=== PATIENT | female | born 1960 | race African-American/Black ===

== ENCOUNTER 2017-06-16 12:09 | Emergency (ER) | payer OTHER ==
[~2017-06-16] VITALS: Ht 154.9 cm; Wt 83.9 kg
[2017-06-16] MEDS ORDERED: ONDANSETRON HCL INJ 2 MG/ML VIAL IV STA (12:26)
[2017-06-16] MEDS ORDERED: SODIUM CHLORIDE 0.9% 1000ML 1,000 ML IV STA (12:26)
[2017-06-16] MEDS ORDERED: MORPHINE SULFATE 4 MG/ML SYR IV STA (12:26)
[2017-06-16] MEDS ORDERED: DIATRIZOATE MEGL/DIATRIZOA SOD 30 ML BTL PO ONE (12:41)
[2017-06-16 13:53] LABS: BASOPHILS % 0.5 % (0.0-1.0); EOSINOPHILS # (AUTO) 0.2 (0.0-0.4); EOSINOPHILS % 2.2 % (0.0-6.0); HEMATOCRIT 39.4 % (34.2-44.1); HEMOGLOBIN 12.5 g/dL (12.0-16.0); LYMPHOCYTES # (AUTO) 2.7 (1.0-3.2); LYMPHOCYTES % 33.1 % (18.0-39.1); MEAN CORPUSCULAR HEMOGLOBIN 27.4 pg (28-32); MEAN CORPUSCULAR HGB CONC 31.7 g/dL (31-35); MEAN CORPUSCULAR VOLUME 86.2 fL (81-99); MONOCYTES # (AUTO) 0.3 (0.2-0.8); PLATELET COUNT 271 x10e3/uL (140-360); RED BLOOD COUNT 4.57 x10e6/uL (3.6-5.1); RED CELL DISTRIBUTION WIDTH 14.8 % (11.7-14.4)
[2017-06-16 13:56] LABS: BILIRUBIN,URINE NEGATIVE (NEGATIVE); KETONES,URINE NEGATIVE (NEGATIVE); LEUKOCYTE ESTERASE ,URINE NEGATIVE (NEGATIVE); NITRITE,URINE NEGATIVE (NEGATIVE); PROTEIN,URINE DIPSTICK NEGATIVE (NEGATIVE); URINE UROBILINOGEN 0.2 mg/dL (0.2 - 1)
[2017-06-16 14:14] LABS: ALANINE AMINOTRANSFERASE 19 IU/L (0-55); ALBUMIN 4.3 g/dL (3.5-5.0); ALKALINE PHOSPHATASE 125 IU/L (40-150); ANION GAP 13.8 mmol/L (8-16); BLOOD UREA NITROGEN 11 mg/dL (7-26); BUN/CREATININE RATIO 12 (6-25); CALCIUM 9.6 mg/dL (8.4-10.2); CARBON DIOXIDE 26 mmol/L (22-29); CHLORIDE 102 mmol/L (98-107); CREATINE KINASE 174 IU/L (29-168); CREATININE, SERUM 0.95 mg/dL (0.57-1.11); EST GLOMERULAR FILTRATION RATE > 60 ML/MIN (60-); GLUCOSE 83 mg/dL (74-118); LIPASE 24 U/L (8-78); POTASSIUM 3.8 mmol/L (3.5-5.1); SODIUM 138 mmol/L (136-145)
[2017-06-16 14:19] LABS: CLARITY,URINE CLEAR (CLEAR); COLOR,URINE STRAW (YELLOW)
[2017-06-16 14:32] LABS: BACTERIA,URINE FEW /HPF; WBC,URINE (MAN) 0-5 /HPF (0-5)
[2017-06-16 14:33] LABS: EPITHELIAL CELLS,URINE MODERATE /LPF
--- NOTE | 2017-06-16 15:00 | Diagnostic Imaging Report ---
PROCEDURE: CT ABDOMEN AND PELVIS WITH CONTRAST TECHNIQUE: The abdomen and pelvis were scanned utilizing a multidetector helical scanner from the diaphragm to the lesser trochanter after the IV administration of 100 cc of Isovue 370 and the oral administration of Gastroview. Coronal and sagittal multiplanar reformations were obtained. COMPARISON: None. INDICATIONS: RIGHT LOWER QUADRANT PAIN FINDINGS: LOWER THORAX: Normal. HEPATOBILIARY: No focal hepatic lesion or intrahepatic biliary ductal dilatation. Gallbladder is unremarkable. SPLEEN: No splenomegaly. PANCREAS: No focal masses or ductal dilatation. ADRENALS: No adrenal nodules. KIDNEYS/URETERS: 3.3 cm simple cyst projecting from the upper pole the right kidney. 1.5 cm parenchymal cyst in the interpolar left kidney. Additional sub-centimeters hypoattenuating foci throughout the kidneys too small to further characterize but likely represent small cysts. No hydronephrosis. PELVIC ORGANS/BLADDER: The urinary bladder is unremarkable. Uterus is anteflexed and appears normal. No adnexal mass. PERITONEUM / RETROPERITONEUM: No free air or fluid. LYMPH NODES: No lymphadenopathy. VESSELS: Unremarkable. GI TRACT: The large bowel shows no distention or wall thickening. There scattered diverticula along the ascending colon without wall thickening or inflammation. The appendix is normal. Postsurgical changes of the stomach related to bariatric procedure. No small bowel dilatation to suggest obstruction. BONES AND SOFT TISSUES: No focal soft tissue abnormalities. No osseous destructive lesions. Mild degenerative disc changes and facet arthropathy of the lumbar spine. IMPRESSION: No acute intra-abdominal or pelvic CT abnormalities. Normal appendix. Large bowel diverticulosis without evidence of diverticulitis. Dictated by: Gil Moraes M.D. on 06/16/2017 at 15:00 Electronically approved by: Gil Moraes M.D. on 06/16/2017 at 15:00
[2017-06-16 15:56] VITALS: BP 137/83
[2017-06-16] MEDS ORDERED: IOPAMIDOL 370 MG/ML 200 ML INFUS..BTL INJ ONE (20:33)
[2017-06-16] MEDS ORDERED: SODIUM CHLORIDE 0.9% 50ML 50 ML ONE (20:33)
== END 2017-06-16 16:18 | disposition home or self-care (01) ==
LOC: ER 12:09
DX: R10.31 Right lower quadrant pain (principal); R11.0 Nausea; M79.661 Pain in right lower leg
CPT/HCPCS: 36415; 74177; 80053; 81001; 82550; 82553; 83690; 84484; 84702; 85025; 93971; 99284; J2405; J7030; Q9967

== ENCOUNTER 2018-08-23 04:04 | Observation (INO) | payer OTHER ==
[~2018-08-23] VITALS: Ht 154.9 cm; Wt 86.2 kg
--- OUTSIDE RECORDS SUMMARY | 2018-08-23 04:07 | XMS REPORT | Summary of Care ---
Author Author [facility] Organization [facility] Address Unknown Phone Unavailable Encounter HQ Encntr_oseas(FIN) [id number] Date(s): 03/11/16 - 03/11/16 [facility] [address] [place] [id number] Discharge Disposition: Home or Self Care Attending Physician: Artemio Diaz MD Admitting Physician: Artemio Diaz MD Referring Physician: Artemio Diaz MD Vital Signs No data available for this section Problem List No data available for this section Allergies, Adverse Reactions, Alerts Substance Reaction Severity Status Vicodin Active Medications No data available for this section Results No data available for this section Immunizations No data available for this section Procedures No data available for this section Social History Social History Type Response Smoking Status Never smoker; Exposure to Tobacco Smoke None; Cigarette Smoking Last 365 Days No; Reg Smoking Cessation Counseling No Assessment and Plan No data available for this section
--- OUTSIDE RECORDS SUMMARY | 2018-08-23 04:07 | XMS REPORT | Continuity of Care Document ---
Author Author [facility] Address Unknown Phone Unavailable Problems Problem Status Onset Date Classification Date Reported Comments Source CLAF PAIN/M79.669 Active 03/11/[address] [facility] [place] [place] COUGH/SOB Active 07/29/[address] [facility] [place] [place] Discharge Diagnosis: Epigastric pain 2015 06/23/[address] [facility] [place] [place] Discharge Diagnosis: Leg pain, right 2015 06/23/[address] [facility] [place] [place] CHEST PAIN Active [address] [facility] [place] [place] COUGH Active 03/23/[address] [facility] [place] [place] PAIN IN UNSPECIFIED LOWER LEG Active [facility] [place] [place] COUGH Active [facility] [place] [place] SHORTNESS OF BREATH Active [facility] [place] [place] Medications Medication Details Route Status Patient Instructions Ordering Provider Order Date Source Famotidine 20 MG Oral Tablet [Pepcid] 20 mg=1 tab, PO, BID, # 30 tab, 0 Refill(s) Active [address] [facility] [place] [place] Sucralfate 1000 MG Oral Tablet [Carafate] 1 gm=1 tab, PO, QID-Before Meals, # 120 tab, 0 Refill(s) Active [address] [facility] [place] [place] Sodium Chloride 0.154 MEQ/ML Injectable Solution 500 mL, 500 ml/hr, Infuse Over: 1 hr, Route: IV, 500, Drug form: INJ, ONCE, Priority: STAT, Dosing Weight 87.415 kg, Start date: 06/20/15 13:55:00, Duration: 1 doses or times, Stop date: 06/20/15 13:55:[address] [facility] [place] [place] GI cocktail 30 mL, Route: PO, Drug Form: SUSP, Dosing Weight 87.415, kg, ONCE, STAT, Start date: 06/20/15 13:55:00, Stop date: 06/20/15 13:55:00Notes: G.I. Cocktail=antacid with simethicone 22.5 mL - lidocaine v iscous 7.5 mL Inactive [address] [facility] [place] [place] Saline Flush 0.9% 10 mL, Route: IVP, Drug Form: INJ, Dosing Weight 87.415, kg, PRN, PRN Line Flush, Start date: 06/20/15 12:31:00, Duration: 30 day, Stop date: 07/20/15 12:30:[address] [facility] [place] [place] Saline Flush 0.9% 10 mL, Route: IVP, Drug Form: INJ, Dosing Weight 87.415, kg, PRN, PRN Line Flush, Start date: 06/20/15 12:30:00, Duration: 30 day, Stop date: 07/20/15 12:29:[address] [facility] [place] [place] Saline Flush 0.9% 10 mL, Route: IVP, Drug Form: INJ, Dosing Weight 87.415, kg, PRN, PRN Line Flush, Start date: 06/20/15 12:26:00, Duration: 30 day, Stop date: 07/20/15 12:25:00Notes: Same as: BD Posiflush Sterile Inactive [address] [facility] [place] [place] Allergies, Adverse Reactions, Alerts Substance Category Reaction Severity Reaction type Status Date Reported Comments Source Vicodin Assertion Drug allergy Active [facility] [place] [place] Immunizations Immunization Date Given Site Status Last Updated Comments Source Results Order Name Results Value Reference Range Date Interpretation Comments Source Chest 2 views DX Chest 2 views DX Study: Chest 2 views DX Clinical Indication: R05 Cough Comparison: 2015 FINDINGS: The cardiac silhouette is normal in size. The lungs are clear and without consolidation or congestion. No pleural effusion or pneumothorax is seen. The osseous structures are unremarkable. IMPRESSION: No acute cardiopulmonary disease. SL: [id number] 07/29/2015 - - Read by: Chris Aguayo MD Dictated Date/time: 07/29/15 16:30 Electronically Signed by: Chris Aguayo MD 07/29/15 16:[address] [facility] [place] [place] URINE AND STOOL UA Nitrite Negative (06/20/15 1:27 PM) Negative [address] [facility] [place] [place] URINE AND STOOL UA Urobilinogen 0.2 EU/dL 0.1 - 1.[address] [facility] [place] [place] URINE AND STOOL UA Leuk Est Negative (06/20/15 1:27 PM) Negative [address] [facility] [place] [place] URINE AND STOOL UA Ketones Negative *NA* (06/20/15 1:27 PM) Negative 2015 [facility] URINE AND STOOL UA Glucose Negative (06/20/15 1:27 PM) Negative 2015 [facility] URINE AND STOOL UA Blood Large *ABN* (06/20/15 1:27 PM) Negative 2015 [facility] URINE AND STOOL UA Bili Negative *NA* (06/20/15 1:27 PM) Negative 2015 [facility] URINE AND STOOL UA Color Yellow *NA* (06/20/15 1:27 PM) Yellow 2015 [facility] URINE AND STOOL UA Turbidity Clear (06/20/15 1:27 PM) Clear 2015 [facility] URINE AND STOOL UA Protein Negative (06/20/15 1:27 PM) Negative [address] [facility] [place] [place] URINE AND STOOL UA pH 6.5 5.0 - 8.[address] [facility] [place] [place] URINE AND STOOL UA Spec Grav 1.020 <=1.[address] [facility] [place] [place] URINE AND STOOL UA Mucus Rare /LPF None Seen /LPF 2015 [facility] URINE AND STOOL UA Bacteria Occasional /HPF None Seen /HPF 2015 [facility] URINE AND STOOL UA RBC 3-5 /HPF 0 - 2 2015 [facility] URINE AND STOOL UA WBC 0-2 /HPF None Seen /HPF [address] [facility] [place] [place] URINE AND STOOL UA Sq Epi Few /LPF Few /LPF 2015 [facility] URINE AND STOOL Micro? Performed (06/20/15 1:27 PM) [address] [facility] [place] [place] CARDIAC ENZYMES CK MB 1.0 ng/mL 0.5 - 3.[address] [facility] [place] [place] CARDIAC ENZYMES Total CK 93 unit/L 12 - [address] [facility] [place] [place] CARDIAC ENZYMES Troponin-I null 0.00 - 0.[address] [facility] [place] [place] CARDIAC ENZYMES CK MB Index 1.1 0.0 - 2.[address] [facility] [place] [place] CARDIAC ENZYMES CK MB Index 0.8 0.0 - 2.[address] [facility] [place] [place] CARDIAC ENZYMES Total CK 93 unit/L 12 - [address] [facility] [place] [place] CARDIAC ENZYMES CK MB 0.7 ng/mL 0.5 - 3.[address] [facility] [place] [place] CARDIAC ENZYMES Troponin-I null 0.00 - 0.[address] [facility] [place] [place] CHEM PANEL eGFR 96 mL/min/1.73m2 2015 Result Comment: The eGFR is calculated using the CKD-EPI formula. In most young, healthy individuals the eGFR will be >90 mL/min/1.73m2. The eGFR declines with age. An eGFR of 60-89 may be normal in some populations, particularly the elderly, for whom the CKD-EPI formula has not been extensively validated. Use of the eGFR is not recommended in the following populations: Individuals with unstable creatinine concentrations, including patients and those with serious co-morbid conditions. Patients with extremes in muscle mass or diet. The data above are obtained from the National Kidney Disease Education Program (NKDEP) which additionally recommends that when the eGFR is used in patients with extremes of body mass index for purposes of drug dosing, the eGFR should be multiplied by the estimated BMI. [facility] [place] [place] CHEM PANEL Sodium Lvl 141 meq/L 135 - [address] [facility] [place] [place] CHEM PANEL BUN 11 mg/dL 7 - [address] [facility] [place] [place] CHEM PANEL Creatinine Lvl 0.81 mg/dL 0.50 - 1.[address] [facility] [place] [place] CHEM PANEL Bili Total 0.3 mg/dL 0.2 - 1.[address] [facility] [place] [place] CHEM PANEL AGAP 9.7 meq/L 10.0 - 20.[address] [facility] [place] [place] CHEM PANEL B/C Ratio 14 6 - [address] [facility] [place] [place] CHEM PANEL Globulin 4.3 g/dL 2.0 - 4.[address] [facility] [place] [place] CHEM PANEL A/G Ratio 0.8 0.7 - 1.[address] [facility] [place] [place] CHEM PANEL Calcium Lvl 8.5 mg/dL 8.5 - 10.[address] [facility] [place] [place] CHEM PANEL CO2 30 meq/L 24 - [address] [facility] [place] [place] CHEM PANEL Chloride Lvl 105 meq/L 95 - [address] [facility] [place] [place] CHEM PANEL Potassium Lvl 3.7 meq/L 3.5 - 5.[address] [facility] [place] [place] CHEM PANEL Albumin Lvl 3.4 g/dL 3.5 - 5.[address] [facility] [place] [place] CHEM PANEL Alk Phos 123 unit/L 39 - [address] [facility] [place] [place] CHEM PANEL Total Protein 7.7 g/dL 6.4 - 8.[address] [facility] [place] [place] CHEM PANEL ALT 25 unit/L 0 - [address] [facility] [place] [place] CHEM PANEL AST 14 unit/L 0 - [address] [facility] [place] [place] CHEM PANEL Glucose Lvl 82 mg/dL 70 - [address] [facility] [place] [place] CHEM PANEL Amylase Lvl 26 unit/L 25 - [address] [facility] [place] [place] CHEM PANEL Lipase Lvl 78 unit/L 73 - [address] [facility] [place] [place] ELECTROLYTES Chloride Lvl 105 meq/L 95 - [address] [facility] [place] [place] ELECTROLYTES Sodium Lvl 141 meq/L 135 - [address] [facility] [place] [place] ELECTROLYTES Potassium Lvl 3.7 meq/L 3.5 - 5.[address] [facility] [place] [place] ELECTROLYTES Creatinine Lvl 0.81 mg/dL 0.50 - 1.[address] [facility] [place] [place] ELECTROLYTES Total Protein 7.6 g/dL 6.4 - 8.[address] [facility] [place] [place] ELECTROLYTES Calcium Lvl 8.5 mg/dL 8.5 - 10.[address] [facility] [place] [place] ELECTROLYTES CO2 26 meq/L 24 - [address] [facility] [place] [place] ELECTROLYTES eGFR 96 mL/min/1.73m2 2015 Result Comment: The eGFR is calculated using the CKD-EPI formula. In most young, healthy individuals the eGFR will be >90 mL/min/1.73m2. The eGFR declines with age. An eGFR of 60-89 may be normal in some populations, particularly the elderly, for whom the CKD-EPI formula has not been extensively validated. Use of the eGFR is not recommended in the following populations: Individuals with unstable creatinine concentrations, including patients and those with serious co-morbid conditions. Patients with extremes in muscle mass or diet. The data above are obtained from the National Kidney Disease Education Program (NKDEP) which additionally recommends that when the eGFR is used in patients with extremes of body mass index for purposes of drug dosing, the eGFR should be multiplied by the estimated BMI. [facility] [place] [place] ELECTROLYTES Globulin 4.3 g/dL 2.0 - 4.[address] [facility] [place] [place] ELECTROLYTES A/G Ratio 0.8 0.7 - 1.[address] [facility] [place] [place] ELECTROLYTES Glucose Lvl 78 mg/dL 70 - [address] [facility] [place] [place] ELECTROLYTES BUN 11 mg/dL 7 - [address] [facility] [place] [place] ELECTROLYTES AST 16 unit/L 0 - [address] [facility] [place] [place] ELECTROLYTES Albumin Lvl 3.3 g/dL 3.5 - 5.[address] [facility] [place] [place] ELECTROLYTES ALT 25 unit/L 0 - [address] [facility] [place] [place] ELECTROLYTES Alk Phos 123 unit/L 39 - [address] [facility] [place] [place] ELECTROLYTES Bili Total 0.4 mg/dL 0.2 - 1.[address] [facility] [place] [place] ELECTROLYTES AGAP 13.7 meq/L 10.0 - 20.[address] [facility] [place] [place] ELECTROLYTES B/C Ratio 14 6 - [address] [facility] [place] [place] ENDOCRINOLOGY S Preg Negative *NA* (06/20/15 1:23 PM) Negative [address] [facility] [place] [place] HEMATOLOGY Eosinophils # 0.1 K/CMM 0.0 - 0.[address] [facility] [place] [place] HEMATOLOGY Monocytes # 0.6 K/CMM 0.0 - 0.[address] [facility] [place] [place] HEMATOLOGY Lymphocytes 28.6 % 20.0 - 40.[address] [facility] [place] [place] HEMATOLOGY Monocytes 7.2 % 2.0 - 12.[address] [facility] [place] [place] HEMATOLOGY Lymphocytes # 2.5 K/CMM 1.0 - 5.[address] [facility] [place] [place] HEMATOLOGY Segs-Bands # 5.4 K/CMM 1.5 - 8.[address] [facility] [place] [place] HEMATOLOGY Basophils 0.5 % 0.0 - 1.[address] [facility] [place] [place] HEMATOLOGY Eosinophils 1.5 % 0.0 - 4.[address] [facility] [place] [place] HEMATOLOGY Segs 62.2 % 45.0 - 75.[address] [facility] [place] [place] HEMATOLOGY MPV 7.9 fL 7.4 - 10.[address] [facility] [place] [place] HEMATOLOGY WBC 8.7 K/CMM 3.7 - 10.[address] [facility] [place] [place] HEMATOLOGY Platelet 257 K/CMM 133 - [address] [facility] [place] [place] HEMATOLOGY RDW 19.0 % 11.5 - 14.[address] [facility] [place] [place] HEMATOLOGY MCHC 30.5 g/dL 32.0 - 36.[address] [facility] [place] [place] HEMATOLOGY Hct 31.4 % 36.0 - 48.[address] [facility] [place] [place] HEMATOLOGY RBC 4.40 M/CMM 4.20 - 5.[address] [facility] [place] [place] HEMATOLOGY MCV 71.3 fL 80.0 - 98.[address] [facility] [place] [place] HEMATOLOGY MCH 21.8 pg 27.0 - 31.[address] [facility] [place] [place] HEMATOLOGY Hgb 9.6 g/dL 12.0 - 16.[address] [facility] [place] [place] Chest 2 views DX Chest 2 views DX : 1960; Age: 54 years y/o Female MR: [id number] Study: Chest 2 views DX 2015 12:30 PM CDT Clinical Indication: Chest pain; Comparison: Chest x-ray 03/23/2014. TECHNIQUE: 2 views of the chest are done. FINDINGS: Bilateral lungs are clear. No pneumothorax or pleural effusion is seen. Cardiomediastinal contours are within normal limits. Bilateral shoulder degenerative changes are seen. Small anterior thoracic spine osteophytes are noted. IMPRESSION: 1. No acute intrathoracic abnormality. SL: [id number] 2015 - - Read by: Taylor Neumann MD Dictated Date/time: 06/20/15 12:56 Electronically Signed by: Taylor Neumann MD 06/20/15 12:[address] [facility] [place] [place] Chest 2 views Chest 2 views Examination: Chest x-ray, 2 views History: cough Comparison: 04/15/2010 Findings: The lungs are clear and without focal consolidation. The cardiomediastinal silhouette is within normal limits. No pleural effusion or pneumothorax is seen. The osseous structures are without focal abnormality. IMPRESSION: No acute cardiopulmonary disease. SL: 16 03/23/2014 - - Read by: Chris Aguayo MD Dictated Date/time: 03/23/14 14:54 Electronically Signed by: Chris Aguayo MD 03/23/14 14:[address] [facility] [place] [place] Vital Signs Vital Sign Value Date Comments Source Temperature Oral (F) 98 F 2015 [facility] Respitory Rate 18 2015 [facility] Systolic (mm Hg) 142 2015 [facility] Diastolic (mm Hg) 86 2015 [facility] Respitory Rate 15 2015 [facility] Systolic (mm Hg) 143 2015 [facility] Diastolic (mm Hg) 96 2015 [facility] Temperature Oral (F) 98 F 2015 [facility] Systolic (mm Hg) 151 2015 [facility] Diastolic (mm Hg) 93 2015 [facility] Temperature Oral (F) 98.2 F 2015 [facility] Respitory Rate 13 2015 [facility] Weight 87.415 2015 [facility] Height 154.94 cm 2015 [facility] BMI Calculated 36.41 2015 [facility] Heart Rate [address] [facility] [place] [place] Encounters Location Location Details Encounter Type Encounter Number Reason For Visit Attending Provider ADM Date DC Date Status Source [facility] [id number] Artemio Diaz 03/23/2014 03/24/2014 [facility] [id number] Goyo Fodr 2015 2015 [facility] Out[facility] [id number] Artemio Diaz 07/29/2015 07/30/2015 [facility] Outpatient [id number] Artemio Diaz 03/11/2016 03/12/[address] [facility] [place] [place] Procedures Procedure Code Date Perfomer Comments Source
--- OUTSIDE RECORDS SUMMARY | 2018-08-23 04:07 | XMS REPORT ---
[facility] Address Unknown Phone Unavailable Care Team Providers Care Tosser Name Role Phone Jamie CAMPOS Unavailable Unavailable Problems This patient has no known problems. Allergies, Adverse Reactions, Alerts This patient has no known allergies or adverse reactions. Medications This patient has no known medications. Results Test Description Test Time Test Comments Text Results Atomic Results Result Comments Radiologic examination, chest; 2 views CLINICAL INDICATION: R06.02 Shortness of breathTECHNIQUE: PA and lateral views of the chest.FINDINGS: Comparison study: noneThe lungs are clear. There are no infiltrates or effusions.The cardiac silhouette is unremarkable. The tia and mediastinum are intact.The regional skeleton is intact.IMPRESSION:No acute abnormalities in the chest. US VENOUS/BILAT/LOWER CLINICAL INDICATION: R06.02 Shortness of breathMODALITY: [employer] PreirusTECHNIQUE: Real time, high frequency Doppler waveform and color imaging of the lower extremities are performed.COMPARISON: none FINDINGS:Common femoral, greater saphenous, femoral, popliteal and proximal calf veins are imaged. Spontaneous and phasic flow are observed. Vessels are compressible without evidence of intraluminal thrombus. Great saphenous vein is not enlarged on either side. No reflux was seen. No Shay s cyst was seen.IMPRESSION:1. Normal flow without DVT.2. No enlargement of the great saphenous vein or evidence of chronic superficial venous insufficiency. CT ABDOMEN/PELVIS W [place] [address] Patient Name: POLO SALAZAR MR #: [id number] : 1960 Age/Sex: 56/F Req #: [id number] Adm Physician: Ordered by: WALE DAVILA CREW SCHEDULER Report #: [id number] Location: ER Room/Bed: Procedure: [id number] CT/CT ABDOMEN/PELVIS W Exam Date: 06/16/17 Exam Time: 1425 REPORT STATUS: Signed PROCEDURE: CT ABDOMEN AND PELVIS WITH CONTRAST TECHNIQUE: The abdomen and pelvis were scanned utilizing a multidetector helical scanner from the diaphragm to the lesser trochanter after the IV administration of 100 cc of Isovue 370 and the oral administration of Gastroview. Coronal and sagittal multiplanar reformations were obtained. COMPARISON: None. INDICATIONS: RIGHT LOWER QUADRANT PAIN FINDINGS: LOWER THORAX: Normal. HEPATOBILIARY: No focal hepatic lesion or intrahepatic biliary ductal dilatation. Gallbladder is unremarkable. SPLEEN: No splenomegaly. PANCREAS: No focal masses or ductal dilatation. ADRENALS: No adrenal nodules. KIDNEYS/URETERS: 3.3 cm simple cyst projecting from the upper pole the right kidney. 1.5 cm parenchymal cyst in the interpolar left kidney. Additional sub-centimeters hypoattenuating foci throughout the kidneys too small to further characterize but likely represent small cysts. No hydronephrosis. PELVIC ORGANS/BLADDER: The urinary bladder is unremarkable. Uterus is anteflexed and appears normal. No adnexal mass. PERITONEUM / RETROPERITONEUM: No free air or fluid. LYMPH NODES: No lymphadenopathy. VESSELS: Unremarkable. GI TRACT: The large bowel shows no distention or wall thickening. There scattered diverticula along the ascending colon without wall thickening or inflammation. The appendix is normal. Postsurgical changes of the stomach related to bariatric procedure. No small bowel dilatation to suggest obstruction. BONES AND SOFT TISSUES: No focal soft tissue abnormalities. No osseous destructive lesions. Mild degenerative disc changes and facet arthropathy of the lumbar spine. IMPRESSION: No acute intra-abdominal or pelvic CT abnormalities. Normal appendix. L arge bowel diverticulosis without evidence of diverticulitis. Dictated by: Martina Rogers M.D. on 06/16/2017 at 15:00 Electronically approved by: Martina Rogers M.D. on 06/16/2017 at 15:00 Dictated By: MARTINA ROGERS MD 1500 Transcribed By: GLORIA on 06/16/17 1500 COPY TO: WALE DAVILA NP
--- OUTSIDE RECORDS SUMMARY | 2018-08-23 04:07 | XMS REPORT | Summary of Care ---
Author Author [facility] Organization [facility] Address Unknown Phone Unavailable Encounter HQ Encntr_aliclaudia(FIN) [id number] Date(s): 07/29/15 - 07/29/15 [facility] [address] [place] [id number]- [phone] Discharge Disposition: Home Attending Physician: Artemio Diaz MD Vital Signs No [...]
--- OUTSIDE RECORDS SUMMARY | 2018-08-23 04:07 | XMS REPORT | Summary of Care ---
Author Author [facility] Organization [facility] Address Unknown Phone Unavailable Encounter SHO Castellano(JACEK) [id number] Date(s): 06/20/15 - 06/20/15 [facility] [address] [place] [address]- Discharge Diagnosis: Epigastric pain Discharge Diagnosis: Leg pain, right Discharge Disposition: Home Attending Physician: Goyo Ford MD Vital Signs 1 2 3 Most recent to oldest [Reference Range]: 154.94 cm (06/20/15 12:24 PM) Height 98 DegF (06/20/15 6:06 PM) 98 DegF (06/20/15 4:10 PM) 98.2 DegF (06/20/15 3:18 PM) Temperature Oral [96.4-99.1 DegF] 142/86 mmHg *HI* (06/20/15 6:06 PM) 143/96 mmHg *HI* (06/20/15 4:10 PM) 151/93 mmHg *HI* (06/20/15 3:18 PM) Blood Pressure [90-140/60-90 mmHg] 18 BRMIN (06/20/15 6:06 PM) 15 BRMIN (06/20/15 4:10 PM) 13 BRMIN *LOW* (06/20/15 3:18 PM) Respiratory Rate [14-20 BRMIN] 73 bpm (06/20/15 12:24 PM) Peripheral Pulse Rate [60-100 bpm] 87.415 kg (06/20/15 12:24 PM) Weight 36.41 m2 (06/20/15 12:24 PM) Body Mass Index Problem List No data available for this section Allergies, Adverse Reactions, Alerts Substance Reaction Severity Status Vicodin Active Medications Carafate 1 g oral tablet 1 gm=1 tab, PO, QID-Before Meals, # 120 tab, 0 Refill(s) Start Date: 06/20/15 Status: Ordered GI cocktail 30 mL, Route: PO, Drug Form: SUSP, Dosing Weight 87.415, kg, ONCE, STAT, Start d ate: 06/20/15 13:55:00, Stop date: 06/20/15 13:55:00 Notes: G.I. Cocktail=antacid with simethicone 22.5 mL - lidocaine viscous 7.5 mL Start Date: 06/20/15 Stop Date: 06/20/15 Status: Completed NS (Bolus) IV 500 mL, 500 ml/hr, Infuse Over: 1 hr, Route: IV, 500, Drug form: INJ, ONCE, Prio rity: STAT, Dosing Weight 87.415 kg, Start date: 06/20/15 13:55:00, Duration: 1 doses or times, Stop date: 06/20/15 13:55:00 Start Date: 06/20/15 Stop Date: 06/20/15 Status: Completed Pepcid 20 mg oral tablet 20 mg=1 tab, PO, BID, # 30 tab, 0 Refill(s) Start Date: 06/20/15 Status: Ordered Saline Flush 0.9% 10 mL, Route: IVP, Drug Form: INJ, Dosing Weight 87.415, kg, PRN, PRN Line Flush , Start date: 06/20/15 12:30:00, Duration: 30 day, Stop date: 07/20/15 12:29:00 Start Date: 06/20/15 Stop Date: 06/20/15 Status: Deleted Saline Flush 0.9% 10 mL, Route: IVP, Drug Form: INJ, Dosing Weight 87.415, kg, PRN, PRN Line Flush , Start date: 06/20/15 12:26:00, Duration: 30 day, Stop date: 07/20/15 12:25:00 Notes: Same as: BD Posiflush Sterile Start Date: 06/20/15 Stop Date: 06/20/15 Status: Discontinued Saline Flush 0.9% 10 mL, Route: IVP, Drug Form: INJ, Dosing Weight 87.415, kg, PRN, PRN Line Flush , Start date: 06/20/15 12:31:00, Duration: 30 day, Stop date: 07/20/15 12:30:00 Start Date: 06/20/15 Stop Date: 06/20/15 Status: Deleted Results ELECTROLYTES Most recent to 1 2 oldest [Reference Range]: Sodium Lvl [135-145 141 mEq/L 141 mEq/L mEq/L] (06/20/15 1:23 PM) (06/20/15 1:23 PM) Potassium Lvl 3.7 mEq/L 3.7 mEq/L [3.5-5.1 mEq/L] (06/20/15 1:23 PM) (06/20/15 1:23 PM) Chloride Lvl [95-109 105 mEq/L 105 mEq/L mEq/L] (06/20/15 1:23 PM) (06/20/15 1:23 PM) CO2 [24-32 mEq/L] 26 mEq/L 30 mEq/L (06/20/15 1:23 PM) (06/20/15 1:23 PM) AGAP [10.0-20.0 13.7 mEq/L 9.7 mEq/L mEq/L] (06/20/15 1:23 PM) *LOW* (06/20/15 1:23 PM) CHEM PANEL Most recent to 1 2 oldest [Reference Range]: Creatinine Lvl 0.81 mg/dL 0.81 mg/dL [0.50-1.40 mg/dL] (06/20/15 1:23 PM) (06/20/15 1:23 PM) eGFR 96 mL/min/1.73m2 1 96 mL/min/1.73m2 2 *NA* *NA* (06/20/15 1:23 PM) (06/20/15 1:23 PM) BUN [7-22 mg/dL] 11 mg/dL 11 mg/dL (06/20/15 1:23 PM) (06/20/15 1:23 PM) B/C Ratio [6-25] 14 14 (06/20/15 1:23 PM) (06/20/15 1:23 PM) Glucose Lvl [70-99 78 mg/dL 82 mg/dL mg/dL] (06/20/15 1:23 PM) (06/20/15 1:23 PM) Total Protein 7.6 g/dL 7.7 g/dL [6.4-8.4 g/dL] (06/20/15 1:23 PM) (06/20/15 1:23 PM) Albumin Lvl [3.5-5.0 3.3 g/dL 3.4 g/dL g/dL] *LOW* *LOW* (06/20/15 1:23 PM) (06/20/15 1:23 PM) Globulin [2.0-4.0 4.3 g/dL 4.3 g/dL g/dL] *HI* *HI* (06/20/15 1:23 PM) (06/20/15 1:23 PM) A/G Ratio [0.7-1.6] 0.8 0.8 (06/20/15 1:23 PM) (06/20/15 1:23 PM) Calcium Lvl 8.5 mg/dL 8.5 mg/dL [8.5-10.5 mg/dL] (06/20/15 1:23 PM) (06/20/15 1:23 PM) ALT [0-65 unit/L] 25 unit/L 25 unit/L (06/20/15 1:23 PM) (06/20/15 1:23 PM) AST [0-37 unit/L] 16 unit/L 14 unit/L (06/20/15 1:23 PM) (06/20/15 1:23 PM) Alk Phos [39-136 123 unit/L 123 unit/L unit/L] (06/20/15 1:23 PM) (06/20/15 1:23 PM) Bili Total [0.2-1.3 0.4 mg/dL 0.3 mg/dL mg/dL] (06/20/15 1:23 PM) (06/20/15 1:23 PM) Amylase Lvl [25-115 26 unit/L unit/L] (06/20/15 1:23 PM) Lipase Lvl [73-393 78 unit/L unit/L] (06/20/15 1:23 PM) 1Result Comment: The eGFR is calculated using the [...] from the National Kidney Disease Education Program ( NKDEP) which additionally recommends that when the eGFR is used in patients with extremes of body mass index for purposes of drug dosing, the eGFR should be mul tiplied by the estimated BMI. 2Result Comment: The eGFR is calculated using the [...] from the National Kidney Disease Education Program ( NKDEP) which additionally recommends that when the eGFR is used in patients with extremes of body mass index for purposes of drug dosing, the eGFR should be mul tiplied by the estimated BMI. CARDIAC ENZYMES Most recent to 1 2 oldest [Reference Range]: Total CK [12-191 93 unit/L 93 unit/L unit/L] (06/20/15 1:23 PM) (06/20/15 1:23 PM) CK MB [0.5-3.6 1.0 ng/mL 0.7 ng/mL ng/mL] (06/20/15 1:23 PM) (06/20/15 1:23 PM) CK MB Index 1.1 0.8 [0.0-2.5] (06/20/15 1:23 PM) (06/20/15 1:23 PM) Troponin-I <0.02 ng/mL <0.02 ng/mL [0.00-0.40 ng/mL] (06/20/15 1:23 PM) (06/20/15 1:23 PM) ENDOCRINOLOGY Most recent to 1 2 oldest [Reference Range]: S Preg [Negative] Negative *NA* (06/20/15 1:23 PM) URINE AND STOOL Most recent to 1 2 oldest [Reference Range]: UA Turbidity [Clear] Clear (06/20/15 1:27 PM) UA Color [Yellow] Yellow *NA* (06/20/15 1:27 PM) UA pH [5.0-8.0] 6.5 (06/20/15 1:27 PM) UA Spec Grav 1.020 [<=1.030] (06/20/15 1:27 PM) UA Glucose Negative [Negative] (06/20/15 1:27 PM) UA Blood [Negative] Large *ABN* (06/20/15 1:27 PM) UA Ketones Negative [Negative] *NA* (06/20/15 1:27 PM) UA Protein Negative [Negative] (06/20/15 1:27 PM) UA Urobilinogen 0.2 EU/dL [0.1-1.0 EU/dL] (06/20/15 1:27 PM) UA Bili [Negative] Negative *NA* (06/20/15 1:27 PM) UA Leuk Est Negative [Negative] (06/20/15 1:27 PM) UA Nitrite Negative [Negative] (06/20/15 1:27 PM) UA WBC [None Seen 0-2 /HPF /HPF] (06/20/15 1:27 PM) UA RBC [0-2 /HPF] 3-5 /HPF *ABN* (06/20/15 1:27 PM) UA Bacteria [None Occasional /HPF Seen /HPF] (06/20/15 1:27 PM) UA Sq Epi [Few /LPF] Few /LPF (06/20/15 1:27 PM) UA Mucus [None Seen Rare /LPF /LPF] (06/20/15 1:27 PM) Micro? Performed (06/20/15 1:27 PM) HEMATOLOGY Most recent to 1 2 oldest [Reference Range]: WBC [3.7-10.4 K/CMM] 8.7 K/CMM (06/20/15 1:23 PM) RBC [4.20-5.40 4.40 M/CMM M/CMM] (06/20/15 1:23 PM) Hgb [12.0-16.0 g/dL] 9.6 g/dL *LOW* (06/20/15 1:23 PM) Hct [36.0-48.0 %] 31.4 % *LOW* (06/20/15 1:23 PM) MCV [80.0-98.0 fL] 71.3 fL *LOW* (06/20/15 1:23 PM) MCH [27.0-31.0 pg] 21.8 pg *LOW* (06/20/15 1:23 PM) MCHC [32.0-36.0 30.5 g/dL g/dL] *LOW* (06/20/15 1:23 PM) RDW [11.5-14.5 %] 19.0 % *HI* (06/20/15 1:23 PM) Platelet [133-450 257 K/CMM K/CMM] (06/20/15 1:23 PM) MPV [7.4-10.4 fL] 7.9 fL (06/20/15 1:23 PM) Segs [45.0-75.0 %] 62.2 % (06/20/15 1:23 PM) Lymphocytes 28.6 % [20.0-40.0 %] (06/20/15 1:23 PM) Monocytes [2.0-12.0 7.2 % %] (06/20/15 1:23 PM) Eosinophils [0.0-4.0 1.5 % %] (06/20/15 1:23 PM) Basophils [0.0-1.0 0.5 % %] (06/20/15 1:23 PM) Segs-Bands # 5.4 K/CMM [1.5-8.1 K/CMM] (06/20/15 1:23 PM) Lymphocytes # 2.5 K/CMM [1.0-5.5 K/CMM] (06/20/15 1:23 PM) Monocytes # [0.0-0.8 0.6 K/CMM K/CMM] (06/20/15 1:23 PM) Eosinophils # 0.1 K/CMM [0.0-0.5 K/CMM] (06/20/15 1:23 PM) Immunizations No data available for this section Procedures No data available for this section Social History Social History Type Response Smoking Status Never smoker; Exposure to Tobacco Smoke None; Cigarette Smoking Last 365 Days No; Reg Smoking Cessation Counseling No Assessment and Plan No data available for this section
--- OUTSIDE RECORDS SUMMARY | 2018-08-23 04:07 | XMS REPORT | Summary of Care ---
Author Organization Unknown Address Unknown Phone Unavailable Encounter HQ Encntr_oseas(JACEK) [id number] Date(s): 03/23/14 - 03/23/[address] Discharge Disposition: Home Physician Attending: Artemio Diaz MD Physician_Referring: Artemio Diaz MD Reason for Visit COUGH Problem List No data available for this section Allergies, Adverse Reactions, Alerts Substance Reaction Severity Status Vicodin Active Medications No data available for this section Medications Administered During Your Visit No data available for this section Immunizations No data available for this section Social History Social History Type Response
[2018-08-23] MEDS ORDERED: ASPIRIN 81 MG CHEW TAB PO STA (04:16)
[2018-08-23] MEDS ORDERED: NITROGLYCERIN 2% OINT 1 GM PKT TOP ONE (04:30)
[2018-08-23 04:56] LABS: BASOPHILS % 0.2 % (0.0-1.0); EOSINOPHILS # (AUTO) 0.1 (0.0-0.4); EOSINOPHILS % 1.7 % (0.0-6.0); HEMATOCRIT 35.9 % (34.2-44.1); HEMOGLOBIN 11.2 g/dL (12.0-16.0); LYMPHOCYTES # (AUTO) 2.2 (1.0-3.2); LYMPHOCYTES % 26.6 % (18.0-39.1); MEAN CORPUSCULAR HEMOGLOBIN 26.9 pg (28-32); MEAN CORPUSCULAR HGB CONC 31.2 g/dL (31-35); MEAN CORPUSCULAR VOLUME 86.3 fL (81-99); MONOCYTES # (AUTO) 0.6 (0.2-0.8); MONOCYTES % 7.3 % (4.4-11.3); NEUTROPHILS # (AUTO) 5.2 (2.1-6.9); PLATELET COUNT 208 x10e3/uL (140-360); RED BLOOD COUNT 4.16 x10e6/uL (3.6-5.1); RED CELL DISTRIBUTION WIDTH 15.3 % (11.7-14.4)
[2018-08-23 05:00] LABS: INR 0.88; PROTHROMBIN TIME 12.4 seconds (11.9-14.5)
[2018-08-23 05:01] LABS: PARTIAL THROMBOPLASTIN TIME 29.2 seconds (23.8-35.5)
--- NOTE | 2018-08-23 05:02 | Diagnostic Imaging Report ---
Examination: Single AP view of the chest. COMPARISON: None. INDICATION: Chest pain DISCUSSION: Lines/tubes: None. Lungs: The lungs are well inflated and clear. No pneumonia or pulmonary edema. Pleura: No pleural effusion or pneumothorax. Heart and mediastinum: The heart and the mediastinum are unremarkable. Bones and soft tissues: No acute bony abnormalities. IMPRESSION: 1. No acute cardiopulmonary abnormalities. Signed by: Dr. Bhavik Wilkerson M.D. on 08/23/2018 4:59 AM
--- NOTE | 2018-08-23 05:04 | Diagnostic Imaging Report ---
Exam: Left shoulder 2 views History: Pain Comparison: None. Findings: No fracture. Moderate glenohumeral and mild acromioclavicular arthrosis. Impression: No acute osseous abnormality Moderate glenohumeral and mild acromioclavicular arthrosis. Signed by: Dr. Bhavik Wilkerson M.D. on 08/23/2018 5:00 AM
[2018-08-23 05:10] LABS: ALANINE AMINOTRANSFERASE 23 IU/L (0-55); ALBUMIN 3.4 g/dL (3.5-5.0); ALBUMIN/GLOBULIN RATIO 0.9 (0.8-2.0); ALKALINE PHOSPHATASE 117 IU/L (40-150); ANION GAP 12.9 mmol/L (8-16); BLOOD UREA NITROGEN 14 mg/dL (7-26); BUN/CREATININE RATIO 16 (6-25); CALCIUM 9.3 mg/dL (8.4-10.2); CARBON DIOXIDE 23 mmol/L (22-29); CHLORIDE 102 mmol/L (98-107); CREATINE KINASE 139 IU/L (29-168); CREATININE, SERUM 0.85 mg/dL (0.57-1.11); EST GLOMERULAR FILTRATION RATE > 60 ML/MIN (60-); GLUCOSE 85 mg/dL (74-118); MAGNESIUM 2.3 MG/DL (1.3-2.1); POTASSIUM 3.9 mmol/L (3.5-5.1); SODIUM 134 mmol/L (136-145)
[2018-08-23] MEDS ORDERED: NITROGLYCERIN 0.4 MG SUBL SL PRN (05:45)
[2018-08-23] MEDS ORDERED: ONDANSETRON HCL INJ 2MG/ML 2ML 2 MG/ML VIAL IV PRN (05:45)
[2018-08-23] MEDS ORDERED: FAMOTIDINE 20 MG/2 ML VIAL IV SCH (05:45)
[2018-08-23 05:47] LABS: CLARITY,URINE CLEAR (CLEAR); COLOR,URINE YELLOW (YELLOW); LEUKOCYTE ESTERASE ,URINE NEGATIVE (NEGATIVE); NITRITE,URINE NEGATIVE (NEGATIVE); PROTEIN,URINE DIPSTICK NEGATIVE (NEGATIVE)
[2018-08-23 05:48] LABS: BILIRUBIN,URINE NEGATIVE (NEGATIVE); KETONES,URINE NEGATIVE (NEGATIVE); URINE UROBILINOGEN 0.2 mg/dL (0.2 - 1)
[2018-08-23 05:54] LABS: BACTERIA,URINE RARE /HPF
[2018-08-23 05:55] LABS: EPITHELIAL CELLS,URINE RARE /LPF
--- NOTE | 2018-08-23 08:23 | NUR ---
Spoke with Dr. Longoria regarding patient headache. Ok to remove nitro paste, ordered 650mg tylenol PRN
[2018-08-23] MEDS ORDERED: ACETAMINOPHEN 325 MG TAB ONE (08:29)
[2018-08-23] MEDS ORDERED: ACETAMINOPHEN 325 MG TAB PO PRN ×2 (08:30→08:45)
[2018-08-23] MEDS ORDERED: ASPIRIN 81 MG ENTERIC COATED PO SCH (09:00)
[2018-08-23] MEDS ORDERED: [UNRECOGNIZED DRUG - CODE] PO (09:08)
--- NOTE | 2018-08-23 11:25 | NUR ---
report received. patient to arrive to unit via stretcher, alert and oriented.
--- NOTE | 2018-08-23 11:40 | NUR ---
patient arrived to unit via wheelchair, alert and oriented. campus monitor in place, daughter at the bedside. call mendoza within reach and bed in lowest position.
[2018-08-23 12:02] VITALS: BP 156/83
[2018-08-23 12:04] VITALS: BP 156/83
[2018-08-23 12:06] VITALS: BP 156/83
[2018-08-23 13:07] LABS: CREATINE KINASE 112 IU/L (29-168)
[2018-08-23 13:35] LABS: CHOL/HDL RATIO 3.5 (3.0-3.6)
[2018-08-23 13:55] LABS: THYROID STIMULATING HORMONE 0.451 uIU/mL (0.350-4.940)
--- NOTE | 2018-08-23 14:06 | NUR ---
patient leaving unit via wheelchair for stress testing. patient alert and oriented and in no distress.
--- NOTE | 2018-08-23 14:39 | NUR ---
patient arrived back to unit via wheelchair, alert and oriented. back in bed with call mendoza within reach and bed in lowest position.
[2018-08-23] MEDS ORDERED: MULTIVITAMINS1 EAC7 (14:44)
--- NOTE | 2018-08-23 14:45 | NUR ---
Visit made by the Spiritual Care Department Pastoral Visitor, Paulina Montano. Pt out of room and no family at bedside. A card was left at the bedside to indicate a missed visit from a member of the Spiritual Care team and to inform the pt and family of the availability of a Radial Drill Operator 24 hours a day/7 days a week. A director of math will follow up as able. SANDRA VALLE Radial Drill Operator Spiritual Care Department O: [phone] Pager: [phone] ([phone] calling from)
--- NOTE | 2018-08-23 15:24 | Operative Report ---
DATE OF PROCEDURE: 08/23/2018 SURGEON: Cameorn Velez MD TITLE OF REPORT: Exercise treadmill stress test. INDICATION FOR STUDY: Chest pain. TECHNICAL DETAILS: After risks, benefits, pros and cons of today's exercise treadmill stress test explained to the patient, the patient agreed to proceed. The patient was brought down to the stress lab where 12-lead EKG monitoring and blood pressure monitoring were obtained. She exercised on a Wilfredo protocol for a total duration of 6 minutes and 21 seconds terminating at 21 seconds of stage III. Increase in heart rate went from a baseline of 57 beats per minute to a maximum of 142 beats per minute, which is above our target heart rate of 139 beats per minute. Blood pressure went from baseline of 164/86 and maximally went to 212/116, which is an appropriate hemodynamic response. The resting EKG revealed normal sinus rhythm, normal axis, and no ST-T wave changes and with exercise, there were no EKG changes or symptoms. CONCLUSION: 1. Negative exercise treadmill stress test. 2. Fair exercise tolerance achieving 7.0 METS of activity. 3. Finding of the stress test explained to the patient including limitations. MD INEZ Castañeda/MODL /[id number]
[2018-08-23 15:50] VITALS: BP 165/87
--- NOTE | 2018-08-23 15:54 | Consultation ---
DATE OF CONSULTATION: 08/23/2018 REASON FOR CONSULTATION: Chest pain. CHIEF COMPLAINT: Chest pain and left arm pain. HISTORY OF PRESENT ILLNESS: This is a 58-year-old female with history of gastric sleeve, gastric bypass, also history of hypertension. The patient presents to [facility] ER with complaints of chest pain and left arm pain since Wednesday. Cardiology consulted for evaluation. The patient is seen in room with daughter at the bedside, reports started having chest pain on Wednesday after a workout, reported has left arm pain, also reported having chest pain, pressure sensation lasting a few hours and was relieved on its own. However, pain has continued, the pressure sensation comes and goes. Does report intermittent shortness of breath with this discomfort. Cardiac enzymes were obtained. First enzyme showed a troponin of less than 0.001, second set is pending. EKG showing normal sinus rhythm, no changes suggestive of acute event. PAST MEDICAL HISTORY: Hypertension. PAST SURGICAL HISTORY: Gastric bypass eight years ago. FAMILY HISTORY: Mother in 70s, apparently with history of diabetes. Father in his 70s also, apparently questionable CAD, however, had bladder cancers. Sister alive with history of CHF. SOCIAL HISTORY: She is . 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 Denies any tobacco use, however, positive for alcohol use social. HOME MEDICATIONS: Apparently Micardis and also Bystolic and multivitamin. ALLERGIES: HYDROCODONE. REVIEW OF SYSTEMS: GENERAL: Denies any weight change, fatigue, weakness, fevers, chills, night sweats. SKIN: No rashes, no sores. HEENT: Denies any nausea, vomiting, vision changes, double vision, any vertigo, earaches, any epistaxis, sore throat, swollen neck, hoarseness. CARDIAC: Positive for chest pain as above. Positive for dyspnea on exertion. Denies any orthopnea, PND. Positive for right lower extremity swelling which is chronic. RESPIRATORY: Positive for shortness of breath. Denies any hemoptysis. GI: Reports a good appetite. Denies any nausea, vomiting, diarrhea, constipation, melena, hematochezia. URINARY: Denies any frequency, urgency, hematuria, or dysuria. VASCULAR: Positive for right lower extremity swelling, which she reports is chronic. MUSCULOSKELETAL: Good muscle strength overall, however, positive for generalized joint pains and back pains. NEUROLOGIC: Denies any numbness, tingling, weakness, paralysis, blackout, seizures. HEMATOLOGY: Denies any anemia or easy bruising. ENDOCRINE: Denies any heat or cold intolerance, polyuria or polydipsia. PHYSICAL EXAMINATION: VITAL SIGNS: Height 61 inches, weight 190 pounds, BMI of 35. Blood pressure , respiratory rate 16, pulse 87, temperature 97.8, satting 97% on room air. GENERAL: Appears stated age, reliable informant, in no acute distress. SKIN: No rashes, no bruises noted. HEENT: Normocephalic. Pupils equal, reactive. Extraocular movements intact. NECK: Trachea midline. No thyromegaly. No JVD. No carotid bruits noted. HEART: Regular rate and rhythm. No murmurs or clicks. PMI 4th 5th intercostal space. LUNGS: Bilateral breath sounds, clear to auscultation. Good airway entry. ABDOMEN: Soft, nontender, nondistended. No organomegaly noted. MUSCULOSKELETAL: Good muscle strength throughout. VASCULAR: +2 bilateral radial pulses. +1 DP, PT pulses bilaterally. NEUROLOGIC: Cranial nerves 2 through 12 seem intact. LABORATORY DATA: White count 8.2, hemoglobin 11.2, hematocrit 35, platelets 208. Chemistry; sodium 134, potassium 3.9, BUN 14, and creatinine 0.8. Troponin less than 0.001. BNP less than 10. Chest x-ray showing no acute abnormalities. EKG showing normal sinus rhythm, heart rate 72. ASSESSMENT: 1. Chest pain. 2. Hypertension. 3. Obesity status post gastric bypass surgery. 4. Degenerative joint disease. PLAN: 1. The patient presents with chest pain symptoms, mixed features. First enzyme negative thus far. Second set pending. Depending on second set, we will either do stress test or further invasive evaluation. 2. Echo has been ordered, will be reviewed by Cardiology attending. 3. Aspirin therapy. 4. We will go ahead and check a TSH and lipid panel. 5. Further recommendations as clinical course dictates. Thank you very much for this consult. Seen and examined, agree with note Dictated by Gil Majano, CARLA Luann Velez MD DC/GABRIELLA /[id number] BIJAN
--- NOTE | 2018-08-23 18:45 | NUR ---
patient alert and oriented. discharge instructions given at this time, patient verbalized understanding. IV discontinued, catheter in tact and small dressing applied. patient to be wheeled to personal auto for significant other to drive home.
--- NOTE | 2018-08-26 12:29 | EXERCISE STRESS TEST ---
DATE OF STUDY: 08/23/2018 12:36:00 Stress Test - Treadmill ONLY TITLE OF REPORT: Exercise treadmill stress test. INDICATION FOR STUDY: Chest pain. TECHNICAL DETAILS: After risks, benefits, pros and cons of today's exercise treadmill stress test explained to the patient, the patient agreed to proceed. The patient was brought down to the stress lab where 12-lead EKG monitoring and blood pressure monitoring were obtained. She exercised on a Wilfredo protocol for a total duration of 6 minutes and 21 seconds terminating at 21 seconds of stage III. Increase in heart rate went from a baseline of 57 beats per minute to a maximum of 142 beats per minute, which is above our target heart rate of 139 beats per minute. Blood pressure went from baseline of 164/86 and maximally went to 212/116, which is an appropriate hemodynamic response. The resting EKG revealed normal sinus rhythm, normal axis, and no ST-T wave changes and with exercise, there were no EKG changes or symptoms. CONCLUSION: 1. Negative exercise treadmill stress test. 2. Fair exercise tolerance achieving 7.0 METS of activity. 3. Finding of the stress test explained to the patient including limitations. MD INEZ Castañeda/GABRIELLA /[id number]
== END 2018-08-23 18:54 | disposition home or self-care (01) ==
LOC: ER 04:04 → ERHOLD 05:54 → IMCU 13:04
PROVIDERS: ADMIT Internal Medicine; ATTEND Internal Medicine
DX: R07.2 Precordial pain (principal); Z88.5 Allergy status to narcotic agent; I10 Essential (primary) hypertension; E78.5 Hyperlipidemia, unspecified; Z98.84 Bariatric surgery status; Z87.891 Personal history of nicotine dependence; Z82.49 Family history of ischemic heart disease and other diseases of the circulatory system; E66.9 Obesity, unspecified; Z68.35 Body mass index [BMI] 35.0-35.9, adult; Z83.3 Family history of diabetes mellitus; Z80.52 Family history of malignant neoplasm of bladder; M19.90 Unspecified osteoarthritis, unspecified site
CPT/HCPCS: 36415; 71045; 73030; 80053; 80061; 81001; 82550; 82553; 83735; 83880; 84443; 84484; 85025; 85610; 85730; 93005; 93017; 93306; 99284; G0378

== ENCOUNTER 2020-01-02 12:21 | Emergency (ER) | payer OTHER ==
[~2020-01-02] VITALS: Ht 154.9 cm; Wt 86.2 kg
[~2020-01-02 12:21] MED LIST: MULTIVITAMINS1 EAC7; [UNRECOGNIZED DRUG - CODE] PO
[2020-01-02 12:57] LABS: BASOPHILS % 0.5 % (0.0-1.0); EOSINOPHILS # (AUTO) 0.2 (0.0-0.4); EOSINOPHILS % 2.1 % (0.0-6.0); HEMATOCRIT 35.5 % (34.2-44.1); HEMOGLOBIN 11.1 g/dL (12.0-16.0); LYMPHOCYTES # (AUTO) 1.7 (1.0-3.2); LYMPHOCYTES % 20.8 % (18.0-39.1); MEAN CORPUSCULAR HEMOGLOBIN 28.2 pg (28-32); MEAN CORPUSCULAR HGB CONC 31.3 g/dL (31-35); MEAN CORPUSCULAR VOLUME 90.3 fL (81-99); MONOCYTES # (AUTO) 0.6 (0.2-0.8); MONOCYTES % 6.8 % (4.4-11.3); NEUTROPHILS # (AUTO) 5.8 (2.1-6.9); NEUTROPHILS % 69.4 % (38.7-80.0); PLATELET COUNT 202 x10e3/uL (140-360); RED BLOOD COUNT 3.93 x10e6/uL (3.6-5.1)
[2020-01-02 13:10] LABS: ALANINE AMINOTRANSFERASE 27 IU/L (0-55); ALBUMIN 3.8 g/dL (3.5-5.0); ALBUMIN/GLOBULIN RATIO 1.2 (0.8-2.0); ALKALINE PHOSPHATASE 109 IU/L (40-150); ANION GAP 14.1 mmol/L (8-16); BLOOD UREA NITROGEN 14 mg/dL (7-26); BUN/CREATININE RATIO 15 (6-25); CALCIUM 8.9 mg/dL (8.4-10.2); CARBON DIOXIDE 24 mmol/L (22-29); CHLORIDE 110 mmol/L (98-107); CREATININE, SERUM 0.91 mg/dL (0.57-1.11); EST GLOMERULAR FILTRATION RATE > 60 ML/MIN (60-); GLUCOSE 91 mg/dL (74-118); POTASSIUM 4.1 mmol/L (3.5-5.1); SODIUM 144 mmol/L (136-145)
== END 2020-01-02 14:33 | disposition home or self-care (01) ==
LOC: ER 12:36
DX: R07.9 Chest pain, unspecified (principal); I10 Essential (primary) hypertension; E78.5 Hyperlipidemia, unspecified; Z98.84 Bariatric surgery status
CPT/HCPCS: 36415; 71045; 80053; 83690; 84484; 85025; 85379; 93005; 99284